=== PATIENT | male | born 1950 | race Caucasian/White ===

== ENCOUNTER 2016-12-20 18:06 | Inpatient (IN) | payer MEDICARE, BC ==
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
--- NOTE | ~2016-12-20 | DS ---
Discharge Summary [facility] [address] [place]. [address] NAME: ALEJANDRO SAUCEDO : 54 STATUS : DIS IN PAT#: [id number] AGE: 66 ADM/REG DATE : 12/20/16 MR#: [id number] REPORT SERV DATE: 12/22/16 DICTATED BY: DIPAK TORRES DATE: 12/22/16 REPORT STATUS : Draft TRANSCRIBED BY: MODL DATE: 12/22/16 ADMISSION DATE: 12/20/2016 DISCHARGE DATE: 12/22/2016 DISCHARGE DIAGNOSES: 1. Acute diverticulitis, improved. 2. Chronic obstructive pulmonary disease, stable. 3. Chronic pain. 4. Diabetes mellitus type 2. IMAGING: CT abdomen and pelvis, 12/20/2016. Impression, changes in the left lower abdomen suggest an early inflammatory event possibly related to recurrent diverticulitis. Hepatomegalia, fatty liver, splenic granuloma, prior right nephrectomy. LABORATORY DATA: WBC 6.5, hemoglobin 12.5, hematocrit 37.1, platelet count 245. Sodium 142, potassium 4.3, chloride 106, CO2 is 26, BUN is 13, creatinine is 1.17, glucose is 136, and calcium is 8.2. COURSE OF HOSPITAL STAY: Please refer to history and physical dictated by Dr. Kingsley Pollard on 12/20/2016 for complete admission details. This patient is a 66-year-old gentleman, who presented to [facility] with complaints of increased abdominal pain. He does present with a history of failed outpatient treatment for diverticulitis. The patient states that he has had an ongoing problem for approximately 10 days. He does report history of diverticulitis, repeated episodes in the past. States that primary care physician had placed him on Cipro and Flagyl, but had continued ongoing abdominal pain. The patient was admitted to the hospital. Antibiotics were changed to Levaquin and Flagyl. The patient over the next 24 hours had less abdominal pain, decreased bowel movements. At this time, the patient has had no abdominal pain. He is tolerating full liquid diet. Reports normal bowel movement this a.m. He is dressed and ambulating in home. Has requested to be discharged home at this time. This patient is hemodynamically stable. Condition is going to be discharged home to complete antibiotics for a total of seven-day treatment. He will follow up with his primary care in 7 to 10 days. DISCHARGE MEDICATIONS: 1. Vitamin B12 of 1000 mcg every 30 days. 2. Vitamin D3 of 1000 units to 2000 units p.o. daily. 3. Celexa 40 mg one p.o. daily. 4. Aricept 10 mg one p.o. daily. 5. Neurontin 300 mg one p.o. three times daily. 6. Lisinopril 10 mg one p.o. daily. 7. Mobic 15 mg one p.o. daily. 8. Multivitamin one tab p.o. daily. 9. Protonix 40 mg one p.o. daily. Discharge Summary [place] [id number] [facility] [place]. [address] NAME: ALEJANDRO SAUCEDO : 54 STATUS : DIS IN PAT#: [id number] AGE: 66 ADM/REG DATE : 12/20/16 MR#: [id number] REPORT SERV DATE: 12/22/16 DICTATED BY: DIPAK TORRES DATE: 12/22/16 REPORT STATUS : Draft TRANSCRIBED BY: MARIA ANTONIA DATE: 12/22/16 10.Trazodone 100 mg one p.o. at bedtime. 11.Glucophage 850 mg twice daily. 12.Levaquin 750 mg p.o. daily for a total of seven days. 13.Flagyl 500 mg one p.o. every eight hours a total of seven days. 14.Butrans 20 mcg patch one patch topical every seven days. 15.Oxycodone 10/325 mg one every 6 hours p.r.n. for pain. 16.Glucosamine one tab p.o. twice daily. 17.Antivert 12.5 mg one p.o. three times daily p.r.n. for vertigo. 18.Colace 100 mg one p.o. daily p.r.n. for constipation. 19.Victoza 18 mg/3 mL injection, 1.8 mg subcu daily. 20.AndroGel 1.62% topical gel. This discharge took less than 30 minutes. [facility]/MARIA ANTONIA Dipak Torres NP / [id number] CC: MD Natanael Gonsales M.D.
[2016-12-20 14:30] LABS: BASOPHILS 0.3 %; BASOPHILS ABSOLUTE 0.02 10/3/uL (0.0-0.16); EOSINOPHILS 3.9 %; EOSINOPHILS ABSOLUTE 0.26 10/3/uL (0.0-0.53); ER CBC TAT 0 Hrs 08 Mins; IMMATURE GRANULOCYTES 0.4 %; IMMATURE GRANULOCYTES ABSOLUTE 0.03 10/3/uL (0.0-0.11); LYMPHOCYTES 31.7 %; LYMPHOCYTES ABSOLUTE 2.13 10/3/uL (0.67-4.30); MEAN CORPUSCULAR HEMOGLOB 31.6 pg (26.0-34.0); MONOCYTES 7.2 %; MONOCYTES ABSOLUTE 0.48 10/3/uL (0.21-1.20); NEUTROPHILS 56.5 %; NEUTROPHILS ABSOLUTE 3.79 10/3/uL (2.02-8.40); PLATELET COUNT 259 10/3/uL (150-400); RBC DISTRIBUTION WIDTH 12.7 % (12.0-16.0); WHITE BLOOD CELLS 6.7 10/3/uL (4.5-10.5)
[2016-12-20 14:31] LABS: HEMATOCRIT 39.6 % (40.0-51.0); HEMOGLOBIN 13.6 g/dL (13.6-17.8); MANUAL DIFF NO %; MEAN CORPUS HGB CONC 34.3 g/dL (32.0-36.0); MEAN CORPUSCULAR VOLUME 91.9 fL (80-100); RED CELL COUNT 4.31 10/6/uL (4.7-6.1)
[2016-12-20 14:42] LABS: A/G RATIO 1.1 (0.7-1.9); ALBUMIN 3.7 G/DL (3.5-5.0); ALKALINE PHOSPHATASE 63 U/L (45-117); BUN (BLOOD UREA NITROGEN) 13 MG/DL (6-23); CALCIUM, SERUM 8.7 MG/DL (8.5-10.4); CHLORIDE, SERUM 106 MMOL/L (96-112); CO2 (CARBON DIOXIDE) 25 MMOL/L (24-34); CREATININE 1.13 MG/DL (0.70-1.30); GFR AFRICAN AMERICAN 79 ML/MIN (>=60); GFR NON AFRICAN AMERICAN 68 ML/MIN (>=60); GLOBULIN 3.5 G/DL (2.5-4.1); GLUCOSE, SERUM 135 MG/DL (60-99); POTASSIUM, SERUM 4.4 MMOL/L (3.5-5.3); SGOT(AST) 22 U/L (5-40); SGPT(ALT) 41 U/L (5-65); SODIUM, SERUM 140 MMOL/L (135-148); TOTAL BILIRUBIN 0.2 MG/DL (0-1.2); TOTAL PROTEIN 7.2 G/DL (6.0-8.5)
[2016-12-20 15:59] LABS: ASCORBIC ACID (UR NOT ORDER) NEG (NEG); BILIRUBIN, URINE NEGATIVE (NEG); ER URINALYSIS TAT 0 Hrs 11 Mins; KETONE, URINE NEGATIVE (NEG); LEUKOCYTE ESTERASE(NOT OR NEG (NEG); NITRITE (URINE) NEG (NEG); WBC (NOT ORDERED) (RFLEX) < 1 (0-5)
[~2016-12-20 18:06] MED LIST: ARICEPT10 PO; ARICEPT5 PO; BUTRANS1 EAC2 TOP; C5 PO; CELEXA40 MG PO; CYANO1000T PO; DIL2TAB PO; DSS PO; GLUCOSAMINEPO; GLUCPH8 PO; MCZ125 PO; MOBIC15 MG PO; MULTIVIT/MIN PO; NEUR300 PO; PERCOCET1 TA2 PO; PRISTIQ50 MG PO; PROTONIX PO; TRAZ100 PO; VICTOZA SQ; VICTOZA18 MG/3 ML SC; VITAMIN D31000 UNIT PO; ZESTRIL10 MG PO; [UNRECOGNIZED DRUG - REMARK]
[2016-12-20] MEDS ORDERED: MULTIVITAMI1 PO (20:59)
[2016-12-20] MEDS ORDERED: PRIN10 PO (21:00)
[2016-12-20] MEDS ORDERED: GLUCOSAMINEPO PO (21:00)
[2016-12-20] MEDS ORDERED: B121000P IM (21:02)
[2016-12-20] MEDS ORDERED: CIP5 PO (21:04)
[2016-12-20] MEDS ORDERED: FLAG500TAB PO (21:05)
[2016-12-21 05:29] LABS: INTERNATIONAL NORMAL RATI 1.1 UNITS (-); PARTIAL THROMBO TIME 27.5 SEC (22.5-37.2); PROTIME (NOT ORD) 14.5 SEC (12.0-14.5)
[2016-12-21 05:35] LABS: BASOPHILS 0.3 %; BASOPHILS ABSOLUTE 0.02 10/3/uL (0.0-0.16); EOSINOPHILS 4.5 %; EOSINOPHILS ABSOLUTE 0.29 10/3/uL (0.0-0.53); HEMATOCRIT 37.1 % (40.0-51.0); HEMOGLOBIN 12.5 g/dL (13.6-17.8); IMMATURE GRANULOCYTES 0.5 %; IMMATURE GRANULOCYTES ABSOLUTE 0.03 10/3/uL (0.0-0.11); LYMPHOCYTES 34.8 %; LYMPHOCYTES ABSOLUTE 2.26 10/3/uL (0.67-4.30); MEAN CORPUS HGB CONC 33.7 g/dL (32.0-36.0); MEAN CORPUSCULAR HEMOGLOB 31.8 pg (26.0-34.0); MEAN CORPUSCULAR VOLUME 94.4 fL (80-100); MEAN PLATELET VOLUME 9.2 fL (9.2-13.0); MONOCYTES 9.7 %; MONOCYTES ABSOLUTE 0.63 10/3/uL (0.21-1.20); NEUTROPHILS 50.2 %; NEUTROPHILS ABSOLUTE 3.26 10/3/uL (2.02-8.40); PLATELET COUNT 245 10/3/uL (150-400); RED CELL COUNT 3.93 10/6/uL (4.7-6.1); WHITE BLOOD CELLS 6.5 10/3/uL (4.5-10.5)
[2016-12-21 05:41] LABS: MANUAL DIFF NO %
[2016-12-21 05:58] LABS: A/G RATIO 1.1 (0.7-1.9); ALBUMIN 3.2 G/DL (3.5-5.0); ALKALINE PHOSPHATASE 57 U/L (45-117); BUN (BLOOD UREA NITROGEN) 13 MG/DL (6-23); CALCIUM, SERUM 8.2 MG/DL (8.5-10.4); CHLORIDE, SERUM 106 MMOL/L (96-112); CO2 (CARBON DIOXIDE) 26 MMOL/L (24-34); CREATININE 1.17 MG/DL (0.70-1.30); GFR AFRICAN AMERICAN 76 ML/MIN (>=60); GFR NON AFRICAN AMERICAN 65 ML/MIN (>=60); GLUCOSE, SERUM 136 MG/DL (60-99); POTASSIUM, SERUM 4.3 MMOL/L (3.5-5.3); SGOT(AST) 19 U/L (5-40); SGPT(ALT) 37 U/L (5-65); SODIUM, SERUM 142 MMOL/L (135-148); TOTAL BILIRUBIN 0.3 MG/DL (0-1.2); TOTAL PROTEIN 6.2 G/DL (6.0-8.5); ULTRASENSITIVE TSH 0.936 MCIU/ML (0.358-3.740)
[2016-12-22] MEDS ORDERED: LEVAQUIN750 MG PO (10:56)
[2017-03-14] MEDS ORDERED: NEUR300 PO (16:34)
[2017-03-14] MEDS ORDERED: BUTRANS1 EAC2 TOP (16:34)
[2017-03-14] MEDS ORDERED: VITAMIN D31000 UNIT PO (16:35)
[2017-03-14] MEDS ORDERED: PERCOCET 10/3251 TAB PO (16:35)
[2017-03-14] MEDS ORDERED: CELEXA40 MG PO (16:35)
[2017-03-14] MEDS ORDERED: MOBIC15 MG PO (16:36)
[2017-03-14] MEDS ORDERED: ARICEPT10 PO (16:36)
[2017-03-14] MEDS ORDERED: MULTIVITAMI1 PO (16:37)
[2017-03-14] MEDS ORDERED: GLUCCHONDR PO (16:37)
[2017-03-14] MEDS ORDERED: ZESTRIL10 MG PO (16:38)
[2017-03-14] MEDS ORDERED: GLUCPH8 PO (16:38)
[2017-03-14] MEDS ORDERED: TRAZ100 PO (16:39)
[2017-03-14] MEDS ORDERED: VICTOZA18 MG/3 ML SC (16:39)
[2017-03-14] MEDS ORDERED: DSS PO (16:39)
[2017-03-14] MEDS ORDERED: B121000P IM (16:39)
[2017-03-14] MEDS ORDERED: ANDROGEL 1.62% TOP (16:40)
[2017-03-14] MEDS ORDERED: MCZ125 PO (16:40)
[2017-03-14] MEDS ORDERED: PROTONIX PO (16:40)
== END 2016-12-22 11:55 | disposition home or self-care (01) | DRG 392 ==
LOC: ER 18:06 → 4EA 20:57
PROVIDERS: Emergency Medicine; Hospitalist
DX: K57.92 Diverticulitis of intestine, part unspecified, without perforation or abscess without bleeding (principal); G62.9 Polyneuropathy, unspecified; I10 Essential (primary) hypertension; J44.9 Chronic obstructive pulmonary disease, unspecified; E11.9 Type 2 diabetes mellitus without complications; G89.29 Other chronic pain
CPT/HCPCS: 74176; 80053; 81001; 82962; 83036; 83690; 83735; 84443; 85025; 85610; 85730; 87040; 94640; 96374; 99285; A9270-GY; J1956; J2405